=== PATIENT | female | born 1975 | race Caucasian/White ===

== ENCOUNTER 2020-03-20 07:09 | Outpatient (REF) | payer BC, SELFPAY | END 2020-03-20 07:10 | disposition home or self-care (01) | LOC: HO.LAB 07:09 | PROVIDERS: PCP Internal Medicine; Visit Provider Internal Medicine | DX: Z20.822 Contact with and (suspected) exposure to COVID-19 (principal) | CPT/HCPCS: 36415; C9803; U0003 ==

== ENCOUNTER 2020-04-07 16:31 | Outpatient (REF) | payer BC, SELFPAY ==
[2020-04-07 17:06] LABS: MANUAL DIFF FLAG NO
[2020-04-07 17:08] LABS: Basophils Percent Auto 0.6 % (0-2); Eosinophils Absolute Auto 0.1 X10*3/uL (0.0-0.4); Hematocrit 42.5 % (37-47); Hemoglobin 14.1 g/dl (12.0-16.0); Imm Gran Abs Auto 0.01 X10*3/uL (0.00-0.03); Imm Gran Pct Auto 0.2 % (0.0-0.4); Lymphocytes Absolute Auto 1.7 X10*3/uL (1.2-4.9); Lymphocytes Percent Auto 32.7 % (20-40); Mean Corpuscular HGB Conc 33.2 g/dl (31.0-35.0); Mean Corpuscular Volume 90.4 fL (80-98); Mean Platelet Volume 9.4 fL (9.4-12.3); Monocytes Absolute Auto 0.4 X10*3/uL (0.1-1.2); Monocytes Percent Auto 7.2 % (2-11); Neutrophils Percent Auto 58.3 % (45-73); Platelet Count 216 X10*3/uL (160-400); Red Cell Distribution Width 11.7 % (11.0-16.0); White Blood Count 5.1 X10*3/uL (4.8-10.8)
[2020-04-07 17:48] LABS: Alanine Aminotransferase 13 U/L (0-31); Albumin Level 4.9 g/dL (3.5-5.0); Alkaline Phosphatase 65 U/L (39-117); Aspartate Amino Transferase 19 U/L (5-31); Bilirubin Direct 0.2 mg/dL (0.0-0.5); Bilirubin Total 0.6 mg/dL (0.0-1.0); Total Protein 7.3 g/dL (6.5-8.0)
== END 2020-04-07 16:32 | disposition home or self-care (01) ==
LOC: HO.LAB 16:31
PROVIDERS: Visit Provider Psychiatry & Neurology Neurology
DX: G35 Multiple sclerosis (principal)
CPT/HCPCS: 36415; 80076; 85025

== ENCOUNTER 2020-04-21 17:54 | Outpatient (REF) | payer BC, SELFPAY ==
--- NOTE | ~2020-04-21 | MR_ITS ---
EXAMINATION: MR BRAIN WITHOUT CONTRAST CLINICAL INFORMATION: History of MS for followup exam. COMPARISON: 05/03/2016 TECHNIQUE: Multiplanar multisequence MR imaging of the brain was done without intravenous contrast material. FINDINGS: Brain Volume: Normal for age. Structural: No malformations. Brain and Meninges: DWI imaging demonstrates no restricted diffusion. Multiple small T2 hyperintense white matter lesions in the cerebral hemispheres bilaterally are again noted, with a similar distribution and pattern, with no significant interval change. No new lesions are identified. No T1 black holes are identified. No space-occupying process or mass effect. There is asymmetric susceptibility-weighted artifact again noted in the right caudate nucleus, which may reflect dystrophic minimal deposition, unchanged. Ventricles and Subarachnoid Spaces: Ventricular system and subarachnoid spaces are within normal limits, stable in appearance without hydrocephalus. Orbital Structures: Visualized orbital structures are grossly unremarkable within the limitations of the study. Vascular: Normal signal voids are noted in the visualized major intracranial vessels. MR/MR head/brain wo con IMPRESSION: 1. Stable supratentorial white matter lesions. No definite new lesions are identified. 2. Stable focus of susceptibility-weighted signal loss in the right caudate nucleus which is nonspecific.
== END 2020-04-21 17:55 | disposition home or self-care (01) ==
LOC: HO.MRI 17:54
PROVIDERS: Visit Provider Psychiatry & Neurology Neurology
DX: G35 Multiple sclerosis (principal)
CPT/HCPCS: 70551

== ENCOUNTER 2020-05-03 13:57 | Emergency (ER) | payer BC, SELFPAY ==
[2020-05-03 14:07] VITALS: BP 125/91; PULSE 66; RESP 16; TEMP 36.3; O2SAT 100; BMI 24.3
--- NOTE | 2020-05-03 14:11 | ECG_ITS ---
Test Reason : CHEST PAIN Blood Pressure : / mmHG Vent. Rate : 064 BPM Atrial Rate : 064 BPM P-R Int : 108 ms QRS Dur : 090 ms QT Int : 386 ms P-R-T Axes : 001 067 053 degrees QTc Int : 398 ms Normal sinus rhythm Otherwise normal ECG No previous ECGs available Referred By: Generic ED Physician Electronically Signed By:YANNA PENA MD
== END 2020-05-03 16:32 | disposition left against medical advice (07) ==
PROVIDERS: Emergency Provider Emergency Medicine; PCP Internal Medicine
DX: R07.9 Chest pain, unspecified (principal)
CPT/HCPCS: 93005; 99282; 99283

== ENCOUNTER 2022-04-06 06:16 | Outpatient (REF) | payer BC, SELFPAY ==
[2022-04-06 06:37] LABS: MANUAL DIFF FLAG NO
[2022-04-06 07:32] LABS: Basophils Percent Auto 0.7 % (0-2); Eosinophils Absolute Auto 0.1 X10*3/uL (0.0-0.4); Eosinophils Percent Auto 2.3 % (0-4); Hematocrit 41.8 % (37.0-47.0); Hemoglobin 13.9 g/dl (12.0-16.0); Imm Gran Abs Auto 0.02 X10*3/uL (0.00-0.03); Imm Gran Pct Auto 0.5 % (0.0-0.4); Lymphocytes Absolute Auto 1.5 X10*3/uL (1.2-4.9); Lymphocytes Percent Auto 36.2 % (20-40); Mean Corpuscular HGB Conc 33.3 g/dl (31.0-35.0); Mean Corpuscular Hemoglobin 29.5 pg (27.0-33.0); Mean Corpuscular Volume 88.7 fL (80.0-98.0); Mean Platelet Volume 9.4 fL (9.4-12.3); Monocytes Absolute Auto 0.4 X10*3/uL (0.1-1.2); Monocytes Percent Auto 8.5 % (2-11); Neutrophils Absolute Auto 2.2 x10*3/uL (2.0-8.3); Neutrophils Percent Auto 51.8 % (45-73); Platelet Count 221 X10*3/uL (160-400); Red Blood Count 4.71 X10*6/uL (4.20-5.50); Red Cell Distribution Width 11.8 % (11.0-16.0); White Blood Count 4.3 X10*3/uL (4.8-10.8)
[2022-04-06 08:02] LABS: Alanine Aminotransferase 22 U/L (0-31); Albumin Level 4.5 g/dL (3.5-5.0); Alkaline Phosphatase 62 U/L (39-117); Anion Gap 12 (12-20); Aspartate Amino Transferase 19 U/L (5-31); Bilirubin Total 0.5 mg/dL (0.0-1.0); Blood Urea Nitrogen 15 mg/dL (9-16); Calcium 9.5 mg/dL (8.4-10.2); Carbon Dioxide 29 mmol/L (22-29); Chloride 103 mmol/L (96-108); Cholesterol 181 mg/dL; Estimated Glomerular Filt Rate > 60; Glucose Fasting 97 mg/dL (60-99); HDL Cholesterol 55 mg/dL; LDL Cholesterol Calculated 110 mg/dl; Potassium 4.1 mmol/L (3.3-5.1); Sodium 140 mmol/L (135-145); Total Protein 6.8 g/dL (6.5-8.0); Triglycerides 83 mg/dL
[2022-04-06 08:11] LABS: TSH reflex Free T4 1.37 uIU/mL (0.32-4.0)
[2022-04-06 08:19] LABS: Appearance Urine Clear; Color Urine Yellow; Glucose Urine UA Negative (Negative); Leukocyte Esterase Urine Small (1+) (Negative); Nitrite Urine Negative (Negative); PH 5.5 (5.0-9.0); Specific Gravity - Urine 1.025 (1.005-1.025); UMIC TRIGGER UA YES; Urine Blood Negative (Negative); Urine Ketones Negative (Negative); Urine Protein Negative (Neg-Trace)
[2022-04-06 08:28] LABS: Bacteria Urine None Seen (None Seen); Hyaline Casts Urine 0-2 /LPF (0-2); RBC Urine 0-2 /HPF (0-2); WBC Urine 0-5 /HPF (0-5)
== END 2022-04-06 06:17 | disposition home or self-care (01) ==
LOC: HO.LAB 06:16
PROVIDERS: PCP Family Medicine; Visit Provider Family Medicine
DX: Z00.00 Encounter for general adult medical examination without abnormal findings (principal)
CPT/HCPCS: 36415; 80053; 80061; 81001; 84443; 85025

== ENCOUNTER → 2022-06-20 07:59 | Outpatient (BNVA) | payer BC, SELFPAY | PROVIDERS: PCP Family Medicine; Visit Provider Physician Assistant | DX: Z13.89 Encounter for screening for other disorder (principal) ==

== ENCOUNTER 2022-08-09 14:25 | Outpatient (REF) | payer BC, SELFPAY ==
--- NOTE | ~2022-08-09 | MR_ITS ---
EXAMINATION: MRI BRAIN WITHOUT CONTRAST CLINICAL INFORMATION: Multiple sclerosis. COMPARISON: Brain MRI 04/21/2020, 05/03/2016 TECHNIQUE: Multiplanar MR imaging of the brain was performed without contrast. FINDINGS: There are a few scattered nonspecific foci of T2 FLAIR signal hyperintensity involving the supratentorial white matter. No infratentorial white matter disease. There is no acute territorial infarct. There is asymmetric susceptibility artifact within the right caudate nucleus best visualized on axial image 14 of 24 series 7. No pathological signal changes on the T2 or T2 FLAIR imaging. Intracranial vascular flow voids are maintained. There is no intracranial mass effect or midline shift. No abnormal extra-axial collection. Lateral and third ventricles are normal. No hydrocephalus. Midline structures including the cervicomedullary junction are normal. No acute bone marrow signal changes. There is no mastoid middle ear effusion. Mild present sinus disease primarily affecting the ethmoid air cells. Globes and orbits are symmetric. MR/MR head/brain wo con IMPRESSION: Stable chronic white matter disease with a few scattered nonspecific signal changes involving the supratentorial white matter. No infratentorial white matter disease. No evidence of acute territorial infarct or hemorrhage.
== END 2022-08-09 14:26 | disposition home or self-care (01) ==
LOC: HO.MRI 14:25
PROVIDERS: PCP Family Medicine; Visit Provider Psychiatry & Neurology Neurology
DX: G35 Multiple sclerosis (principal)
CPT/HCPCS: 70551

== ENCOUNTER 2023-02-08 07:46 | Day surgery (SDC) | payer BC, SELFPAY ==
[2023-02-06 13:52] VITALS: BMI 26.6
--- NOTE | 2023-02-06 14:28 | HO.ANESPROP2 ---
Documented by User: Augusta Huertas NP 02/06/23 14:28 HPI - Anesthesia Eval Consult details Narrative: 47yo F for Colonoscopy PMFSH Active Problems Active Problems: All Active Problems (Updated 02/06/23 @ 14:06 by Angela Caban RN) Halitosis (Acute) Pelvic pain (Acute) Breast cancer screening by mammogram (Acute) Screening for colon cancer (Acute) Screening for cervical cancer (Acute) Adult general medical exam (Acute) Axillary swelling (Acute) Immunization counseling (Acute) Eczema (Acute) Family history of coronary artery disease (Acute) Anxiety (Acute) Laboratory exam ordered as part of routine general medical examination (Acute) Multiple sclerosis (Acute) Seizures (Acute) Past Medical History Medical History Menopause Migraine Cervical disc disorder Anxiety Multiple sclerosis Seizures Surgical History Surgical History [place] teeth removed H/O colonoscopy Social History Social History Housing: House Patient Tobacco Use Status: Never used Tobacco e-Cigarette/Vaping Use: Never Used Second Hand Smoke Exposure: No Are you DNR?: No Advance Directives: No Advance Directives Information Provided: Yes Nutrition Risks: No Nutritional Risk FDLMP: 3 years without service: No Current occupational status: employed Current occupational exposures/hazards: No Cognitive needs: No Hearing needs: No Vision needs: No Meds Allergies Allergy/AdvReac Type Severity Reaction Status Date / Time No Known Allergies Allergy Verified 02/08/23 07:55 Home Medications Medication Instructions Recorded Confirmed Last Taken Type dimethyl fumarate 240 mg 240 mg PO BID 04/10/22 02/08/23 Unknown History capsule,delayed release levetiracetam 250 mg tablet 250 mg PO BID 04/10/22 02/06/23 Unknown History lorazepam 0.5 mg tablet 0.5 mg PO DAILY PRN Anxiety 05/01/22 02/06/23 Unknown History Exam Height,Weight and Vital Signs: Height 5 ft 7 in Weight 77.111 kg Assessment and Plan Assessment Anesthesia Assessment: Chart Reviewed Documented by User: Gabby Aguirre MD 02/08/23 08:48 PMFSH Active Problems Active Problems: All Active Problems (Updated 02/08/23 @ 08:20 by Gabby Aguirre MD) Halitosis (Acute) Pelvic pain (Acute) Breast cancer screening by mammogram (Acute) Screening for colon cancer (Acute) Screening for cervical cancer (Acute) Adult general medical exam (Acute) Axillary swelling (Acute) Immunization counseling (Acute) Eczema (Acute) Family history of coronary artery disease (Acute) Anxiety (Acute) Laboratory exam ordered as part of routine general medical examination (Acute) Multiple sclerosis (Acute)- in remission Seizures (Acute)- last seizure 1 year ago Past Medical History Medical History Menopause Migraine Cervical disc disorder Anxiety Multiple sclerosis Seizures Family History Family history of problems with anesthesia: No Surgical History Surgical History [place] teeth removed H/O colonoscopy History of Problems with Anesthesia: No Social History Social History Housing: House Patient Tobacco Use Status: Never used Tobacco e-Cigarette/Vaping Use: Never Used Second Hand Smoke Exposure: No Are you DNR?: No Advance Directives: No Advance Directives Information Provided: Yes Nutrition Risks: No Nutritional Risk FDLMP: 3 years without service: No Current occupational status: employed Current occupational exposures/hazards: No Cognitive needs: No Hearing needs: No Vision needs: No Meds Allergies Allergy/AdvReac Type Severity Reaction Status Date / Time No Known Allergies Allergy Verified 02/08/23 07:55 Home Medications Medication Instructions Recorded Confirmed Last Taken Type dimethyl fumarate 240 mg 240 mg PO BID 04/10/22 02/08/23 Unknown History capsule,delayed release levetiracetam 250 mg tablet 250 mg PO BID 04/10/22 02/06/23 Unknown History lorazepam 0.5 mg tablet 0.5 mg PO DAILY PRN Anxiety 05/01/22 02/06/23 Unknown History Exam Height,Weight and Vital Signs: Height 5 ft 7 in Weight 77.111 kg Vital Signs Temp Pulse Resp BP Pulse Ox O2 Del Method 02/08/23 08:07 97.7 F 72 18 123/81 96 Room Air Airway Mallampati Class: II TM Dist: >3cm Neck ROM: Full Loose/Missing/Broken Teeth: No (Denies broken, loose, missing teeth) Heart: RRR Lungs: CTAB Assessment and Plan Assessment Anesthesia Assessment: Anesthesia Plan Discussed Final Anesthetic Review Family History of Problems with Anesthesia: No History of Problems with Anesthesia: No NPO: Yes ASA Class: III Final Preanesthetic Review: No Changes in Pt Med Stat, Meds/Allgs Chart Reviewed, Consent Obtained/Reviewed and Anes Risks/Benef Reviewed Patient Risk: Intermediate Procedure Risk: Low Assessment/Block/Sedation in SS: Assess/Block/Sedation-SS Anesthetic Plan Anesthetic Plan: MAC: Disposition: Standard PACU
--- NOTE | 2023-02-08 06:35 | P.HPSUR_ITS ---
Pre-Procedural Eval Section A Date of Service: 02/08/23 Section B Chief Complaint: screening Details of Present Illness: also c/o chornic RLQ pain, worse with head lifting and well localized Relevant Family History (Specify if Yes): No Relevant Social History: None Present Medications: see Short Stay Collaborative assessment Medical History: Significant History (Menopause Migraine Cervical disc disorder Anxiety Multiple sclerosis Seizures) History of Previous Operations: Relevant previous surgery/procedure and date(s) (wisdom tooth, colonoscopy) Allergies: Allergies Allergy/AdvReac Type Severity Reaction Status Date / Time No Known Allergies Allergy Verified 06/20/22 08:03 Review of Systems Sugical H&P ROS: Negative: Constitution, Cardiovascular, Respiratory, Neurological, Psychiatric, Hem-Onc, Allergic/Immunologic, Gastrointestinal, Genitourinary, Musculoskeletal, Integumentary, Endocrine and Eyes/Ears/Nose/Throat Exam Surgical H&P Exam: Normal: HEENT, Normal: Heart, Normal: Lungs, Normal: Extremities, Normal: Abdomen and Normal: Neurological and Significant Findings: Skin (tedner RLQ with locazlied pain and pos head lift sign) Plan Diagnosis/Plan: Unchanged I have reviewed the history and physical and performed a pertinent physical examination on my patient. No changes have occurred unless specified. c olonoscopy with lido/kenalog injection to trigger point RLQ Time Spent With Patient Time: Total time managing care of this patient today ____ minutes.
[2023-02-08 07:57] VITALS: BMI 26.6
[2023-02-08] MEDS: Lactated Ringers 1,000 ML 100 ML IVCONT (08:04)
[2023-02-08 08:07] VITALS: BP 123/81; PULSE 72; RESP 18; TEMP 36.5; O2SAT 96
--- NOTE | 2023-02-08 09:07 | W.PM.OPN ---
Operative Note Operative Note Date of Service: 02/08/23 Narrative: Operative Information Procedure Description: Colonoscopy Indication: screening and myofascial pain injection Anesthesia: MAC Before the procedure the site of pain was marked and injected with 40 mg kenalofg mixed with 1% lidocaine and epinephrine 2 cc mix for total of 3 ml. This was injected into the area of concern. COLONOSCOPY Instrument: Olympus variable stiffness pediatric scope 190L Colonoscopy Monitoring: Vital signs and clinical assessment, continuous EKG monitoring, Pulse oximetry, Carbon Dioxide monitoring and blood pressure monitoring were done throughout the procedure. Colon withdrawal time was 10 minutes. Procedure: The patient was placed in the left lateral decubitis position and pre-procedure medications were administered. After a digital rectal examination of the ano-rectum, the video colonoscope was inserted into the rectum and advanced through the colon to the cecum/TI. The colonoscope was slowly withdrawn in a retrograde panoramic fashion and the colon mucosa was carefully examined including a retroflexed view of the rectum. Findings and interventions are described below. Procedure Difficulty: easy Findings: Terminal Ileum-normal Cecum:normal Ascending Colon: normal Transverse Colon -normal Descending Colon:normal Sigmoid Colon: normal Rectum: Retroflexion with small internal hemorrhoids, grade I Anorectum - normal Colon preparation: [place] Bowel Preparation Scale Right colon; 1-2 Transverse colon: 2 Left colon; 2 (0 = Unprepared colon segment with mucosa not seen due to solid stool that cannot be cleared. 1 = Portion of mucosa of the colon segment seen, but other areas of the colon segment not well seen due to staining, residual stool and/or opaque liquid. 2 = Minor amount of residual staining, small fragments of stool and/or opaque liquid, but mucosa of colon segment seen well. 3 = Entire mucosa of colon segment seen well with no residual staining, small fragments of stool or opaque liquid) Impression and Post Procedure Diagnosis: internal hemorrhoids myofascial trigger point injection Plan: High fiber diet leaflet Avoid straining at stool, epsom salts and sitz bath, anusol supps or cream Repeat Colonoscopy in 5 years due to fair prep in some areas or earlier if clinically indicated Above findings were reviewed with the patient and relevant handouts were provided if indicated.
[2023-02-08 09:16] VITALS: BP 101/65; PULSE 65; RESP 16; TEMP 36.7; O2SAT 97
[2023-02-08 09:35] VITALS: BP 108/73; PULSE 62; RESP 18; TEMP 36.7; O2SAT 99
== END 2023-02-08 09:57 | disposition home or self-care (01) ==
PROVIDERS: PCP Family Medicine; Visit Provider Internal Medicine Gastroenterology
PROC: 0DJD8ZZ Inspection of Lower Intestinal Tract, Via Natural or Artificial Opening Endoscopic (ICD-10-PCS; CPT 45378; principal; 2023-02-08 09:10)
DX: Z12.11 Encounter for screening for malignant neoplasm of colon (principal); K64.0 First degree hemorrhoids; M79.18 Myalgia, other site; M50.90 Cervical disc disorder, unspecified, unspecified cervical region; G35 Multiple sclerosis; G43.909 Migraine, unspecified, not intractable, without status migrainosus; R56.9 Unspecified convulsions; Z78.0 Asymptomatic menopausal state
CPT/HCPCS: 45378; 20552; J2704; J3301

== ENCOUNTER → 2023-02-08 07:46 | Outpatient (BNV) | payer BC, SELFPAY | PROVIDERS: PCP Family Medicine; Visit Provider Internal Medicine Gastroenterology | DX: Z12.11 Encounter for screening for malignant neoplasm of colon (principal); K64.0 First degree hemorrhoids; M79.10 Myalgia, unspecified site | CPT/HCPCS: 20552; 45378 ==

== ENCOUNTER 2023-03-13 11:31 | Outpatient (AMB) | payer BC, SELFPAY ==
--- NOTE | 2023-03-13 11:32 | MHC.OFFVIS ---
Intake Intake Visit Reasons: post op Intake Note: Follow up for Colonoscopy results Patient denies any GI issues. 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 Johnson She tolerated procedure well, she was very happy with trigger point injection at site of pain-she has had no recurrent pain No GI or general complaints [phone] Cell Phone Before the procedure the site of pain was marked and injected with 40 mg kenalofg mixed with 1% lidocaine and epinephrine 2 cc mix for total of 3 ml. This was injected into the area of concern. [facility] Medical History (Updated 03/13/23 @ 11:40 by Yovana Poe PA-C) Menopause Migraine Cervical disc disorder Anxiety Multiple sclerosis Seizures Surgical History [place] teeth removed H/O colonoscopy Social History Housing: House Patient Tobacco Use Status: Never used Tobacco e-Cigarette/Vaping Use: Never Used Second Hand Smoke Exposure: No service: No Current occupational status: employed Current occupational exposures/hazards: No Cognitive needs: No Hearing needs: No Vision needs: No Review of Systems Const Details: All Systems reviewed and are negative Results Reviewed Results Reviewed: Impression and Post Procedure Diagnosis: internal hemorrhoids myofascial trigger point injection Plan: High fiber diet leaflet Avoid straining at stool, epsom salts and sitz bath, anusol supps or cream Repeat Colonoscopy in 5 years due to fair prep in some areas or earlier if clinically indicated Assessment & Plan Assessment & Plan (1) Hemorrhoids: Code(s): K64.9 - Unspecified hemorrhoids Plan: Avoid straining, maintain high-fiber diet Plan Avoid straining, maintain high-fiber diet Repeat asymptomatic colonoscopy 5 years Patient Instructions: Avoid straining, maintain high-fiber diet Repeat asymptomatic colonoscopy 5 years Encouraged to call questions or concerns Telehealth Telehealth Location of provider rendering services: practice address Location of patient: other (Employment) Patient Identification confirmed using: Name, : Yes Telehealth method: voice only Patient verbally consented to treatment: Yes Patient verbally consented to billing insurance company: Yes Patient informed of any privacy concerns related to visit: Yes Coding Level of Care Code Tele Est Pt Level 3 (15028) Diagnoses Hemorrhoids K64.9 Time Spent (min) 15
== END 2023-03-13 14:08 | disposition home or self-care (01) ==
LOC: HO.HGI 11:31
PROVIDERS: PCP Family Medicine; Referring Provider Family Medicine; Visit Provider Physician Assistant
DX: K64.9 Unspecified hemorrhoids (principal)
CPT/HCPCS: 99442

== ENCOUNTER → 2023-03-13 11:31 | Outpatient (BNVA) | payer BC, SELFPAY | PROVIDERS: PCP Family Medicine; Visit Provider Physician Assistant ==

== ENCOUNTER 2023-05-03 09:22 | Outpatient (REF) | payer BC, SELFPAY ==
[2023-05-13 11:04] LABS: HPV mRNA E6/E7 rflx Not Detected (Not Detected)
== END 2023-05-03 09:23 | disposition home or self-care (01) ==
LOC: HO.LAB 09:22
PROVIDERS: PCP Family Medicine; Visit Provider Advanced Practice Midwife
DX: Z01.419 Encounter for gynecological examination (general) (routine) without abnormal findings (principal); E28.319 Asymptomatic premature menopause; Z79.899 Other long term (current) drug therapy
CPT/HCPCS: 87624; 88142

== ENCOUNTER 2023-05-03 09:22 | Outpatient (AMB) | payer BC, SELFPAY ==
--- NOTE | 2023-05-03 09:33 | A.OFFVIS_ITS ---
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 Required: No Information Interpreted: clinical only Smoke Jumper: Smoke Jumper Present Allergies No Known Allergies Allergy (Verified 05/03/23 09:33) Medication List - Last Reconciled 05/03/23 by Velia Clay, CNM dimethyl fumarate 240 mg PO BID levetiracetam 250 mg PO BID lorazepam 0.5 mg PO DAILY PRN triamcinolone acetonide 0.5% 1 appl topical BID PRN 30 days Is last menstrual period known: No Post menopausal: Yes (2020) Do you need a note to return to daycare/school/sports/work: No HPI 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 She has not been seen in since a number of years she had a miscarriage at age 37 and she was 4 months along and it was a very traumatic experience. She has gone through early menopause about 3 years ago her mother did as well. She had hot flashes for a while but they have improved she has not very sexually active with her she has absolutely no concerns about STIs and declines testing. 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 She has MS but she stays very active and things are good at this particular point though she was on chemo at one poinr for it. She used to have ulcers as a young person and she chewed a lot of Tums at the time and she said that sugar affected her teeth so she does not eat a lot of Tums now to protect her teeth. She thinks she could probably get a little bit more calcium in her diet but she has a regular healthy diet. She has 2 adopted girls age 9 and 13. [facility] Medical History Menopause Migraine Cervical disc disorder Anxiety Multiple sclerosis Seizures Surgical History [place] teeth removed H/O colonoscopy Social History Housing: House Patient Tobacco Use Status: Never used Tobacco e-Cigarette/Vaping Use: Never Used Second Hand Smoke Exposure: No service: No Current occupational status: employed Current occupational exposures/hazards: No Cognitive needs: No Hearing needs: No Vision needs: No Female Reproductive History Menstrual Age of Menarche: 11 Duration of menses: <3 days Total pregnancies: 1 History of abnormal pap smear: No (per patient previous pap 2012) Physical Exam Vital Signs: Last Vital Signs BP 110/60 05/03/23 10:04 BMI result Body Mass Index 28.2 Const General: healthy appearing, comfortable, no acute distress, well developed and alert Nutritional Appearance: average body habitus Orientation/consciousness: patient oriented x3 Limitations: no limitations HEENT Head: Yes normocephalic Neck Neck: Yes normal visual inspection Chest Chest palpation & inspection: normal inspection of the chest Breast/axilla inspection: normal inspection of the breasts and normal inspection of the axillae Breast/axilla palpation: normal palpation of the breasts and normal palpation of the axillae Resp Effort & Inspection: normal respiratory effort GI Inspection: Yes normal to inspection, No Abdominal wall edema and No distended Palpation (GI): Soft to palpation and nontender Other: Vagina pink moist atrophic changes notable cervix tiny none nulliparous deviated slightly to patient's right uterus not enlarged nontender adnexa not enlarged nontender good tone with Kegel. General: Yes bladder normal to palpation External Female Exam: normal external appearance and normal appearance of the urethra Speculum Exam - Vagina: normal appearance of the vagina, normal palpation and normal vaginal discharge Speculum Exam - Cervix: normal appearance of the cervix, normal palpation and nontender Bimanual exam- vagina & uterus: normal bimanual exam, normal palpation, uterine size normal, bladder normal to palpation, consistency normal, normal palpation, uterine mobility normal, uterine shape normal, No Cervical tenderness present, non-tender and no cervical motion tenderness Bimanual Exam- Adnexa, other: normal adnexae, no masses, normal and No adnexal tenderness Neuro General: patient oriented x3 Assessment & Plan Assessment & Plan (1) Early onset menopause: Code(s): E28.319 - Asymptomatic premature menopause (2) Well woman exam with routine gynecological exam: Code(s): Z01.419 - Encounter for gynecological examination (general) (routine) without abnormal findings Plan -----Discussed in this visit the following: healthy balanced diet, regular and consistent exercise, getting recommended health screens, doing the best she can for her particular health concerns, kegel exercises, pap smear screening and followup recommendations, mammography screening and SBE, normal changes in cycles in her life stage--- . Up-to-date on mammograms and she had a rather detailed 1 done at [facility] in [place] at [facility] secondary to a concern with axillary swelling this year it turned out fine -she is seen her primary and has had all screening blood work and she feels her MS is in pretty good control and she is going on the theory that staying active helps her have other pathways to deal with any complications that may come before her. She will work on trying to add more calcium to her diet she does eat yogurt every day it is her go to for breakfast . I reviewed that if this Pap is negative and I do hope that it was adequate, that she will not need another Pap for 5 years. She wished to pursue bone density, I recommend she speak to her primary care provider about it as it is not something I manage. Coding Level of Care Code New Pt Prev Care 40-64y(74928) Diagnoses Early onset menopause E28.319 Well woman exam with routine gynecological exam Z01.419
[2023-05-03 10:04] VITALS: BP 110/60; BMI 28.2
== END 2023-05-03 10:47 | disposition home or self-care (01) ==
LOC: HO.HWSM 09:22
PROVIDERS: PCP Family Medicine; Visit Provider Advanced Practice Midwife
DX: Z01.419 Encounter for gynecological examination (general) (routine) without abnormal findings (principal); E28.319 Asymptomatic premature menopause
CPT/HCPCS: 99386; 99396

== ENCOUNTER 2023-05-07 08:59 | Outpatient (AMB) | payer BC, SELFPAY ==
--- NOTE | 2023-05-07 09:19 | AM.OFFWIN_ITS ---
Intake Intake Visit Reasons: CPE Patient Tobacco Use Status: Never used Tobacco Allergies No Known Allergies Allergy (Verified 05/03/23 09:33) PFSH Medical History Menopause Migraine Cervical disc disorder Anxiety Multiple sclerosis Seizures Surgical History [place] teeth removed H/O colonoscopy Social History Housing: House Patient Tobacco Use Status: Never used Tobacco e-Cigarette/Vaping Use: Never Used Second Hand Smoke Exposure: No service: No Current occupational status: employed Current occupational exposures/hazards: No Cognitive needs: No Hearing needs: No Vision needs: No Female Reproductive History Menstrual Age of Menarche: 11 Coding
[2023-05-07 09:22] VITALS: BP 131/86; PULSE 65; RESP 12; TEMP 35.9; O2SAT 98; BMI 27.4
--- NOTE | 2023-05-07 09:31 | MHC.PC.OV ---
Vital Signs 05/07/23 09:22 Height 5 ft 7 in Weight 175 lb BMI 27.4 BP 131/86 Blood Pressure Location Rt brachial Position Sitting Respiration 12 Pulse 65 Pulse Source Pulse Oximeter Temp 96.6 F L Temp Source Temporal Artery Scan Pulse Oximetry (%) 98 Oxygen Delivery Method Room Air Intake Visit Reasons: CPE Intake Note: Patient is here for a CPE and is requesting a referral to ENT for blocked/impacted ears. Patient reports she has used debrox drops. Bag Maker Required: No Accompanied by: Self / Same As Patient Allergies No Known Allergies Allergy (Verified 05/07/23 09:57) Medication List - Last Reconciled 05/07/23 by MARCELO Whitlock dimethyl fumarate 240 mg PO BID levetiracetam 250 mg PO BID lorazepam 0.5 mg PO DAILY PRN triamcinolone acetonide 0.5% 1 appl topical BID PRN 30 days Tobacco use date assessed: 05/01/22 HPI HPI Comments History of Present Illness Details Here today for CPE 47 y/o F with MS, Seizures, menopause Health Maintenance: Colon Mammo 10/2022 Pap 04/2023 WNL Eyes - wears contacts, active Optho Dental routine, no issues Labs were drawn 04/06/22 Vaccines reports UTD DEXA has never had, ordered today. Specialists: Active w/ Neuro ENT - no referral yet, would like this placed today [facility]PER[facility] - [place] Surgeries: None since last visit No hospital stays since last visit [facility], [facility] Medical History Menopause Migraine Cervical disc disorder Anxiety Multiple sclerosis Seizures Surgical History Coy teeth removed H/O colonoscopy Social History Household Members: Spouse and Children Household Members Other:: 2 daughters Housing: House 75 years or older and lives alone: No Alcohol intake: never Patient Tobacco Use Status: Never used Tobacco e-Cigarette/Vaping Use: Never Used Second Hand Smoke Exposure: No service: No Current occupational status: employed Current occupational exposures/hazards: No Cognitive needs: No Hearing needs: Yes (impacted ears ) Vision needs: No Female Reproductive History Menstrual Age of Menarche: 11 Questionnaire PHQ-9 Over the last 2 weeks, how often have you been bothered by any of the following problems? 1. Little interest or pleasure in doing things: not at all 2. Feeling down, depressed, or hopeless: not at all 3. Trouble falling or staying asleep, or sleeping too much: not at all 4. Feeling tired or having little energy: not at all 5. Poor appetite or overeating: not at all 6. Feeling bad about yourself - or that you are a failure or have let yourself or your family down: not at all 7. Trouble concentrating on things, such as reading the newspaper or watching television: not at all 8. Moving or speaking so slowly that other people could have noticed. Or the opposite - being so fidgety or restless that you have been moving around a lot more than usual: not at all 9. Thoughts that you would be better off or of hurting yourself in some way: not at all Total score: 0 Depression Screening Interpretation: Negative Depression Screening Done: Yes 67144 - PHQ-9 Billing: Yes Source: Developed by Drs. Filemon Robertson, Ashley Flores, Umair Palomo and colleagues, with an educational alberto from [employer]. Thrive Questionnaire Date Thrive assessed: 05/07/23 I am a: Patient What is your living situation today?: I have a steady place to live Within the past 12 months, did the food you bought not last and you didn't have the money to get more?: Never true Within the past 12 months, did you worry whether your food would run out before you got money to buy more?: Never true Do you have trouble paying for medicines?: No Do you have trouble getting transportation to medical appointments?: No Do you have trouble paying your heating and electricity bill?: No Do you have trouble taking care of your child, family member or friend?: No Do you have trouble with day-to-day activities such as bathing, preparing meals, shopping, managing finances, etc.?: No Are you currently unemployed and looking for a job?: No Are you interested in more education?: No Please select the resources that you would like help with: None Currently or been in a relationship where the following occur: no concerns reported THRIVE Score: 0 AUDIT C Alcohol Use Questionnaire (AUDIT-C) 1. How often do you have a drink containing alcohol?: Never 3. How often do you have six or more drinks on one occasion?: Never Total Score: 0 Score Reviewed/Action Taken: Yes DION-7 AMB Questionnaire DION-7 Date DION - 7 assessed: 05/07/23 Feeling nervous, anxious, or on edge: 0 = Not at all Not being able to stop or control worryin = Not at all Worrying too much about different things: 0 = Not at all Trouble relaxin = Not at all Being so restless that it is hard to sit still: 0 = Not at all Becoming easily annoyed or irritable: 0 = Not at all Feeling afraid as if something awful might happen: 0 = Not at all Total DION-7 score (0-4 normal; 5-9 mild; 10-14 moderate; 15-21 severe): 0 Source: Developed by Drs. Filemon Robertson, Ashley Flores, Umair Palomo and colleagues, with an educational alberto from [employer]. DION-7 Assessment Billing DION-7 Assessment Tool: DION-7 Assessment 83358 Review of Systems Const Details: Constitutional: Denies fever. Skin: Denies rash. Eye: Denies eye pain. ENMT: Denies sore throat and nasal congestion. Respiratory: Denies shortness of breath and cough. Gastrointestinal: Denies nausea, vomiting or abdominal pain. Cardiovascular: Denies chest pain and syncope. Genitourinary: Denies dysuria. Musculoskeletal: Denies back pain and extremity pain. Neurologic: Denies headaches, confusion, and weakness. Psychiatric: Denies suicidal thoughts and substance abuse. Allergy/ Immunologic: Denies impaired immunity. Physical exam (Primary Care) Vital Signs: Last Vital Signs Temp 96.6 F L 05/07/23 09:22 Pulse 65 05/07/23 09:22 Resp 12 05/07/23 09:22 BP 131/86 05/07/23 09:22 Pulse Ox 98 05/07/23 09:22 Oxygen Delivery Method Room Air 05/07/23 09:22 BMI result Body Mass Index 27.4 Tobacco/Smoking Status: Tobacco use Status Tobacco use date assessed 05/01/22 05/07/23 09:34 Patient Tobacco Use Status Never used Tobacco 05/07/23 09:34 e-Cigarette/Vaping Use Never Used 05/07/23 09:34 PHQ-9: PHQ-9 Score PHQ-9: Total score 0 05/07/23 09:58 Depression Screening Interpretation: Negative Thrive Assessment: Date of Thrive Assessment Date Thrive assessed 05/07/23 05/07/23 09:34 Currently or been in a relationship where the following occur: no concerns reported Const Other: General: Well developed, well nourished, in no acute distress. Appears stated age. Head: Normocephalic, atraumatic. Eyes: Pupils are equal, round and reactive to light and accommodation. Conjunctivae are clear. Vision grossly normal. Ears: TMs clear AU, EACS + cerumen bilat Nose: Patent, without discharge. Mouth: There are no ulcers or lesions noted. No inflammation, no post nasal drip, no plaques nor exudates. Neck: Supple, no adenopathy or thyromegaly. Lungs: Clear to auscultation bilaterally. No rales, rhonchi or wheeze noted. Good air flow in all muniz. Heart: Regular rate and rhythm. No murmurs, click, rubs or gallops are noted. Abdomen: Bowel sounds present in all quadrants. The abdomen is soft, nontender, with no masses or organomegaly noted. No hernias are noted. Musculoskeletal: Joints are nontender, without swelling, redness, or effusions. Range of motion is observed to be normal. Pulses: Peripheral pulses are equal and palpable bilaterally. Extremities: No clubbing, cyanosis nor edema is noted. Neurologic: Gait and station normal. Cranial Nerves 2-12 intact. Motor strength grossly symmetrical and intact. No sensory loss. Balance normal. Skin: No rashes, ulcers, or lesions noted. Turgor is good. Skin color is good. Hair and nails are without abnormalities. Psych: Normal eye contact, affect and mood appropriate, and normal interactions. Patient is alert and appropriate to context. Assessment and Plan Assessment & Plan (1) Adult general medical exam: Code(s): Z00.00 - Encounter for general adult medical examination without abnormal findings (2) Cryptic tonsil: Code(s): J35.8 - Other chronic diseases of tonsils and adenoids Plan: With a history of tonsilliths. Request referral to ENT. Referral placed today (3) Cerumen impaction: Code(s): H61.20 - Impacted cerumen, unspecified ear Qualifiers: Laterality: bilateral Qualified Code(s): H61.23 - Impacted cerumen, bilateral Plan: Requested referral to ENT. Referral placed today. (4) Post-menopausal: Comment: Has not yet had a DEXA scan. DEXA scan ordered along with vitamin-D level Code(s): Z78.0 - Asymptomatic menopausal state (5) Laboratory exam ordered as part of routine general medical examination: Code(s): Z00.00 - Encounter for general adult medical examination without abnormal findings (6) Multiple sclerosis: Comment: Managed by Neurology. Code(s): G35 - Multiple sclerosis (7) Seizures: Comment: controlled-follows w/Dr.'s Vance / Cristóbal Code(s): R56.9 - Unspecified convulsions Orders: Orders Lipid Panel Today Z00.00 - Encounter for general adult medical examination without abnormal findings, Z78.0 - Asymptomatic menopausal state Microalbumin, Random (w Creat) Today Z00.00 - Encounter for general adult medical examination without abnormal findings, Z78.0 - Asymptomatic menopausal state XR DEXA appendicular skeleton Today Z78.0 - Asymptomatic menopausal state Comprehensive [place]. Panel Fast Today Z00.00 - Encounter for general adult medical examination without abnormal findings, Z78.0 - Asymptomatic menopausal state TSH reflex Free T4 Today Z00.00 - Encounter for general adult medical examination without abnormal findings, Z78.0 - Asymptomatic menopausal state Vitamin D 1,25 dihydroxy Today Z00.00 - Encounter for general adult medical examination without abnormal findings, Z78.0 - Asymptomatic menopausal state Referrals Ear/Nose/Throat Referral H61.20 - Impacted cerumen, unspecified ear, J35.8 - Other chronic diseases of tonsils and adenoids Coding Level of Care Code Est Pt Prev Care 40-64y(99660) Diagnoses Adult general medical exam Z00.00 Cryptic tonsil J35.8 Bilateral impacted cerumen H61.23 Laterality: bilateral Post-menopausal Z78.0 Laboratory exam ordered as part of routine general medical examination Z00.00 Multiple sclerosis G35 Seizures R56.9 Additional Codes DION-7 Assessment Billing - DION-7 Assessment Tool: DION-7 Assessment 17836 ([id number])
== END 2023-05-07 10:20 | disposition home or self-care (01) ==
PROVIDERS: PCP Family Medicine; Visit Provider Nurse Practitioner Family
DX: Z00.00 Encounter for general adult medical examination without abnormal findings (principal); G35 Multiple sclerosis; R56.9 Unspecified convulsions; J35.8 Other chronic diseases of tonsils and adenoids; H61.23 Impacted cerumen, bilateral; Z78.0 Asymptomatic menopausal state
CPT/HCPCS: 99396

== ENCOUNTER 2023-05-30 07:49 | Outpatient (REF) | payer BC, SELFPAY ==
--- NOTE | ~2023-05-30 | MM_ITS ---
EXAMINATION: BONE DENSITOMETRY CLINICAL INDICATION: Asymptomatic menopausal state. COMPARISON: This is the patient's baseline examination. TECHNIQUE: Using a [employer] DXA System (software version: 13.1) manufactured by [employer], dual-energy x-ray absorptiometry was performed of the lumbar spine and left hip. The images are of good technical quality. Summary results are attached. FINDINGS: AP SPINE L1-L4: BMD 1.349 g/cm2, Z-score 1.2, T-score 1.4, normal. LEFT FEMUR, NECK: BMD 1.032 g/cm2, Z-score 0.4, T-score 0.0, normal. LEFT FEMUR, TOTAL: BMD 1.036 g/cm2, Z-score 0.3, T-score 0.2, normal. IDENTIFIED RISK FACTORS: Secondary osteoporosis (early menopause). HISTORY OF FRACTURE: None listed. MEDICATIONS: Calcium supplement and/or multivitamin. MM/XR DEXA axial skeleton IMPRESSION: 1. DIAGNOSIS: Normal bone density based on the lowest T-score value of 0.0 in the femoral neck applying World Health Organization criteria. 2. 10-YEAR FRACTURE RISK PREDICTION, FRAX: According to the guidelines, FRAX calculation should only be performed on patients in the osteopenia bone density category.?Therefore, FRAX was not performed on this patient.? 3. Treatment Recommendations: NOF guidelines recommend consideration for treatment in postmenopausal women and men age 50 and older presenting with the following: -A hip or vertebral (clinical or morphometric) fracture. -T-score less than or equal to -2.5 at the femoral neck or spine after appropriate evaluation to exclude secondary causes. -Low bone mass at the hip or spine and a 10-year fracture probability by FRAX of greater than or equal to 3% for hip fracture or greater than or equal to 20% for major osteoporotic fracture based on the [place] adapted WHO algorithm. 4. Other Recommendations: All treatment decisions require clinical judgment and consideration of individual patient factors, including patient preferences, comorbidities, previous drug use, risk factors not captured in the FRAX model (e.g. frailty, falls, vitamin D deficiency, increased bone turnover, interval significant decline in bone density) and possible under or overestimation of fracture risk by FRAX. FUTURE SCAN RECOMMENDATION: People with diagnosed cases of osteoporosis or at high risk for fracture should have regular bone mineral density tests. For patients eligible for Medicare, routine testing is allowed once every 2 years. The testing frequency can be increased to one year for patients who have rapidly progressing disease, those who are receiving or discontinuing medical therapy to restore bone mass, or have additional risk factors.
[2023-05-30 09:19] LABS: Creatinine Urine 164.62 mg/dL; Microalbum/Creatinine Ratio Ur 5.4 ug/mg cr (<30)
[2023-05-30 09:30] LABS: Alanine Aminotransferase 45 U/L (0-31); Albumin Level 4.3 g/dL (3.5-5.0); Alkaline Phosphatase 68 U/L (39-117); Anion Gap 10 (12-20); Aspartate Amino Transferase 26 U/L (5-31); Bilirubin Total 0.4 mg/dL (0.0-1.0); Blood Urea Nitrogen 14 mg/dL (9-16); Calcium 9.3 mg/dL (8.4-10.2); Carbon Dioxide 26 mmol/L (22-29); Chloride 109 mmol/L (96-108); Cholesterol 155 mg/dL (<200); Estimated Glomerular Filt Rate > 60; Glucose Fasting 98 mg/dL (60-99); HDL Cholesterol 50 mg/dL (>40); LDL Cholesterol Calculated 89 mg/dL (<100); Potassium 4.1 mmol/L (3.3-5.1); Sodium 141 mmol/L (135-145); Total Protein 6.8 g/dL (6.5-8.0); Triglycerides 80 mg/dL (<150)
[2023-05-30 09:37] LABS: TSH reflex Free T4 0.91 uIU/mL (0.32-4.0)
[2023-06-04 17:24] LABS: VITAMIN D (1,25 OH) D3 49 pg/mL; Vit D (1,25-Dihydroxy) Total 49 pg/mL (18-72); Vitamin D (1,25 OH) D2 <8 pg/mL
== END 2023-05-30 07:50 | disposition home or self-care (01) ==
LOC: HO.MAMMO 07:49
PROVIDERS: PCP Family Medicine; Visit Provider Nurse Practitioner Family
DX: Z13.820 Encounter for screening for osteoporosis (principal); Z78.0 Asymptomatic menopausal state; Z13.6 Encounter for screening for cardiovascular disorders; Z00.00 Encounter for general adult medical examination without abnormal findings
CPT/HCPCS: 36415; 77080; 80053; 80061; 82043; 82570; 82652; 84443

== ENCOUNTER 2024-03-23 16:53 | Outpatient (REF) | payer BC, SELFPAY ==
--- NOTE | ~2024-03-23 | MR_ITS ---
EXAMINATION: MR BRAIN WITHOUT AND WITH CONTRAST CLINICAL INFORMATION: MS. COMPARISON: MR brain dated August 09, 2022. TECHNIQUE: Multiplanar, multisequence MRI of the brain was obtained before and after the intravenous administration of 7.0 mL gadolinium without reported immediate complications. FINDINGS: Submitted for interpretation on March 26, 2024. No restricted diffusion. No acute intracranial hemorrhage, mass effect, midline shift, hydrocephalus or herniation. There are a few, less than 6 mm, nonenhancing, nonrestricted diffusion deep periventricular white matter and subcortical white matter hyperintense T2 FLAIR signal in the supratentorial compartment, the most conspicuous in the right frontal, right parietal and left frontoparietal regions. Posterior cranial fossa contents demonstrated no signal abnormality or focal masses. Flow-void signal within the main vessels is normal. Sellar/suprasellar region is normal. Craniocervical junction is intact and normal. MR/MR head/brain wo/w con IMPRESSION: Nonenhancing supratentorial compartment the demyelinating plaques. Overall stable. No new findings. Electronically signed by: Marty Bower MD 03/26/2024 10:27 AM ANNALISA
[2024-03-23] MEDS: gadobutroL 7.5 ML VIAL IVPUSH (17:44)
== END 2024-03-23 16:54 | disposition home or self-care (01) ==
LOC: HO.MRI 16:53
PROVIDERS: PCP Family Medicine; Visit Provider Psychiatry & Neurology Neurology
DX: G35 Multiple sclerosis (principal)
CPT/HCPCS: 70553; A9585

== ENCOUNTER → 2024-03-23 17:02 | Outpatient (BNV) | payer BC, SELFPAY | PROVIDERS: PCP Family Medicine; Visit Provider Radiology Diagnostic Radiology | DX: G35 Multiple sclerosis (principal) | CPT/HCPCS: 70553 ==

== ENCOUNTER 2024-05-08 09:01 | Outpatient (AMB) | payer BC, SELFPAY ==
--- NOTE | 2024-05-08 09:06 | A.OFFPC_ITS ---
Vital Signs 05/08/24 09:10 Height 5 ft 7 in Weight 178 lb BMI 27.9 BP 110/60 Blood Pressure Location Lt brachial Position Sitting Respiration 14 Pulse 98 Pulse Source Pulse Oximeter Temp 98.6 F Temp Source Oral Pulse Oximetry (%) 98 Oxygen Delivery Method Room Air Intake Visit Reasons: CPE Intake Note: CPE [employer] Required: No Is last menstrual period known: No Post menopausal: Yes Patient : No Allergies No Known Allergies Allergy (Verified 05/08/24 09:08) Medication List - Last Reconciled 05/08/24 by Chago Varela MD dimethyl fumarate 240 mg PO BID levetiracetam 250 mg PO BID lorazepam 0.5 mg PO DAILY PRN triamcinolone acetonide 0.5% 1 appl topical BID PRN 30 days Tobacco use date assessed: 05/08/24 Dental Screening Dental Screen Date: 05/08/24 Did you have a dental visit in the last 12 months?: Yes Did you have a dental problem in the last 6 months where you did not have access to dental care?: No Was dental information given to patient?: No HPI CPE HPI Details 48 y/o female presents for a CPE with f/ u labs and health maintenance. No recent labs to review. Notes she is requesting referral to ENT for frequent cerumen impaction. Next colonoscopy due 2027. [facility] Medical History Menopause Migraine Cervical disc disorder Anxiety Multiple sclerosis Seizures Surgical History [place] teeth removed H/O colonoscopy Social History Household Members: Spouse and Children Household Members Other:: 2 daughters Housing: House 75 years or older and lives alone: No Alcohol intake: never Patient Tobacco Use Status: Never used Tobacco e-Cigarette/Vaping Use: Never Used Second Hand Smoke Exposure: No Patient : No service: No Current occupational status: employed Current occupational exposures/hazards: No Cognitive needs: No Hearing needs: Yes (impacted ears ) Vision needs: No Female Reproductive History Menstrual Age of Menarche: 11 Questionnaire PHQ-9 Over the last 2 weeks, how often have you been bothered by any of the following problems? 1. Little interest or pleasure in doing things: not at all 2. Feeling down, depressed, or hopeless: not at all 3. Trouble falling or staying asleep, or sleeping too much: not at all 4. Feeling tired or having little energy: not at all 5. Poor appetite or overeating: not at all 6. Feeling bad about yourself - or that you are a failure or have let yourself or your family down: not at all 7. Trouble concentrating on things, such as reading the newspaper or watching television: not at all 8. Moving or speaking so slowly that other people could have noticed. Or the opposite - being so fidgety or restless that you have been moving around a lot more than usual: not at all 9. Thoughts that you would be better off or of hurting yourself in some way: not at all Total score: 0 Depression Screening Interpretation: Negative Depression Screening Done: Yes 04374 - PHQ-9 Billing: Yes Source: Developed by Drs. Filemon Robertson, Ashley Flores, Umair Palomo and colleagues, with an educational alberto from [employer]. Thrive Questionnaire Date Thrive assessed: 05/08/24 I am a: Patient What is your living situation today?: I have a steady place to live Within the past 12 months, did the food you bought not last and you didn't have the money to get more?: Never true Within the past 12 months, did you worry whether your food would run out before you got money to buy more?: Never true Do you have trouble paying for medicines?: No Do you have trouble getting transportation to medical appointments?: No Do you have trouble paying your heating and electricity bill?: No Do you have trouble taking care of your child, family member or friend?: No Do you have trouble with day-to-day activities such as bathing, preparing meals, shopping, managing finances, etc.?: No Are you currently unemployed and looking for a job?: No Are you interested in more education?: No Please select the resources that you would like help with: None Currently or been in a relationship where the following occur: No concerns reported THRIVE Score: 0 AUDIT C Alcohol Use Questionnaire (AUDIT-C) 1. How often do you have a drink containing alcohol?: Never 3. How often do you have six or more drinks on one occasion?: Never Total Score: 0 Score Reviewed/Action Taken: Yes DION-7 AMB Questionnaire DION-7 Date DION - 7 assessed: 05/08/24 Feeling nervous, anxious, or on edge: 0 = Not at all Not being able to stop or control worryin = Not at all Worrying too much about different things: 0 = Not at all Trouble relaxin = Not at all Being so restless that it is hard to sit still: 0 = Not at all Becoming easily annoyed or irritable: 0 = Not at all Feeling afraid as if something awful might happen: 0 = Not at all Total DION-7 score (0-4 normal; 5-9 mild; 10-14 moderate; 15-21 severe): 0 Source: Developed by Drs. Fliemon Robertson, Ashley Flores, Umair Palomo and colleagues, with an educational alberto from [employer]. DION-7 Assessment Billing DION-7 Assessment Tool: DION-7 Assessment 15056 Review of Systems Const Denies chills, Denies fatigue, Denies fever(s), Denies headache(s) and Denies weakness Eyes Denies change in vision ENT Denies dizziness, Denies headache(s), Denies hearing loss, Denies nasal congestion, Denies sinus pain, Denies sinus pressure and Denies sore throat Card Denies chest pain, Denies lightheadedness, Denies dyspnea and Denies other (palpitations) Resp Denies cough, Denies dyspnea and Denies wheezing GI Denies abdominal pain, Denies melena, Denies hematochezia, Denies change in bowel habits, Denies dyspepsia and Denies nausea Denies hematuria and Denies dysuria Musc Denies abnormal gait, Denies myalgias, Denies arthralgias, Denies numbness and Denies tingling Skin/Breast Denies rash, Denies unusual bruising and Denies wounds Neuro Denies abnormal gait, Denies dizziness, Denies headache(s), Denies memory loss, Denies numbness, Denies Sensory deficit (Neuro), Denies tingling and Denies weakness Psych Denies anxiety, Denies depression and Denies memory loss Endo Denies cold intolerance, Denies fatigue, Denies heat intolerance, Denies polydipsia and Denies polyuria Doc/Lymph Denies easy bleeding and Denies easy bruising Aller/Immun Denies wheezing Physical exam (Primary Care) Vital Signs: Last Vital Signs Temp 98.6 F 05/08/24 09:10 Pulse 98 05/08/24 09:10 Resp 14 05/08/24 09:10 BP 110/60 05/08/24 09:10 Pulse Ox 98 05/08/24 09:10 Oxygen Delivery Method Room Air 05/08/24 09:10 BMI result Body Mass Index 27.9 Tobacco/Smoking Status: Tobacco use Status Tobacco use date assessed 05/08/24 05/08/24 09:13 Patient Tobacco Use Status Never used Tobacco 05/08/24 09:13 e-Cigarette/Vaping Use Never Used 05/08/24 09:13 PHQ-9: PHQ-9 Score PHQ-9: Total score 0 05/08/24 09:22 Depression Screening Interpretation: Negative Thrive Assessment: Date of Thrive Assessment Date Thrive assessed 05/08/24 05/08/24 09:13 Currently or been in a relationship where the following occur: No concerns reported Const General: no acute distress, well developed, alert and awake Nutritional Appearance: well nourished Orientation/consciousness: patient oriented x3 HENMT Head: Yes normocephalic and Yes atraumatic Ears: hearing grossly normal bilaterally and TM's normal bilaterally General nose exam: Normal external nose present and Normal nares present Mouth: Normal oral and palatal mucosa present and moist mucous membranes Teeth and gingiva: dentition normal Throat: Yes posterior oropharynx normal Eyes General: appearance normal, both eyes and all related structures Pupils: Equal, round and reactive pupils present and Pupil accommodation reflex normal EOM: EOMs intact bilaterally Neck Neck: Yes normal visual inspection, Yes no lymphadenopathy and Yes trachea midline Thyroid: Thyroid normal Carotids: no bruits Lymphatic: no lymphadenopathy noted Chest Chest palpation & inspection: normal inspection of the chest Resp Effort & Inspection: normal respiratory effort Auscultation: clear to auscultation bilaterally Cardio Rate: regular rate Rhythm: regular rhythm Heart sounds: S1 normal heart sound present, S2 normal heart sound present, no gallops, no murmurs and no rubs Bruits: no abdominal aortic bruits and no carotid bruits GI Palpation (GI): No Abdominal aortic bruit present, Soft to palpation, nontender, No hepatosplenomegaly present and No Rebound tenderness present Auscultation: normal bowel sounds General: Yes no CVA tenderness Back/Spine/Pelvis Back: no CVA tenderness Cervical Spine: cervical ROM normal and No Cervical spine tenderness Thoracic/Lumbar Spine: thoraco-lumbar ROM normal, No pain with thoraco-lumbar ROM, No thoracic spinal tenderness and No lumbar spinal tenderness Skin Lesions: no lesions Rashes: no rashes Trauma: no lacerations or abrasions Wounds: no wounds Nails: normal Neuro General: patient oriented x3 Cranial nerves: Yes Equal, round and reactive pupils present Cognition (Neuro): normal cognition Gait exam (Neuro): Normal gait present Motor exam (neuro): 5/5 motor strength present throughout Sensory Exam: No Sensory deficit (Neuro) Deep tendon reflexes (DTR's): Right patellar reflex intensity grade: 2+ and Left patellar reflex intensity grade: 2+ Extrem General: Yes normal to inspection and No edema Psych Appearance: grossly normal Affect: normal affect Attitude: cooperative Thought process: Normal thought process present Coding Level of Care Code Est Pt Level 3 (60116) Est Pt Prev Care 40-64y(54634) Diagnoses Adult general medical exam Z00.00 Multiple sclerosis G35 Cerumen impaction H61.20 Screening for cervical cancer Z12.4 Subjective hearing change H91.90 Screening for colon cancer Z12.11 Breast cancer screening by mammogram Z12.31 Additional Codes DION-7 Assessment Billing - DION-7 Assessment Tool: DION-7 Assessment 33007 ([id number]) PHQ-9 - 91346 - PHQ-9 Billing: Yes ([id number]) Assessment & Plan Assessment & Plan (1) Adult general medical exam: Code(s): Z00.00 - Encounter for general adult medical examination without abnormal findings Category: Medical Plan: 48-year-old?female?presents For?complete?physical?exam Encouraged?healthy?diet?with?active?lifestyle?and?plenty?of?exercise (2) Multiple sclerosis: Comment: Managed by Neurology. Code(s): G35 - Multiple sclerosis Category: Medical Plan: History?of?MS?and?seizures Followed?by? Follow-up?with?Neurology?as?recommended Currently?stable (3) Cerumen impaction: Code(s): H61.20 - Impacted cerumen, unspecified ear Category: Medical Plan: Patient?gets?bilateral?cerumen?impactions.??She?is?using?Debrox?drops. Currently?has?cerumen?in?ear?canals?bilaterally?but?not?impacted?TMs. She?would?like?to?follow-up?with?ENT?as?she?notes?that?this?affects?her?hearing Renewed?referral?to?ENT (4) Screening for cervical cancer: Comment: Pap smear done 05/03/23.cervix tiny nulliparous postmenopausal slightly difficult to reach-05/03/2023 Pap is negative with negative HPV. Code(s): Z12.4 - Encounter for screening for malignant neoplasm of cervix Category: Medical Plan: Followed?by?Jannette?Campos Pap?smear?done?05/01/2023?and?up-to-date Follow-up?with?marketing sales supervisor?as?recommended (5) Subjective hearing change: Code(s): H91.90 - Unspecified hearing loss, unspecified ear Category: Medical Plan: Offer?referral?to?audiology?but?patient?would?like?to?see?ENT?1st As?above,?referred (6) Screening for colon cancer: Code(s): Z12.11 - Encounter for screening for malignant neoplasm of colon Category: Medical Plan: [place].??Recommended?follow- up?in?2027 (7) Breast cancer screening by mammogram: Code(s): Z12.31 - Encounter for screening mammogram for malignant neoplasm of breast Category: Medical Plan: Last?mammogram?and?ultrasounds?at?a?state These?were?within?normal?limits?and?recommended?annual?screening Will?continue?annual?screening?and?I?have?ordered?her?mammogram Orders: Orders Microalbumin, Random (w Creat) Today I10 - Essential (primary) hypertension, Z00.00 - Encounter for general adult medical examination without abnormal findings Lipid Panel Today Z00.00 - Encounter for general adult medical examination without abnormal findings TSH reflex Free T4 Today Z00.00 - Encounter for general adult medical examination without abnormal findings MM tomosynthesis screening BI Today Z12.31 - Encounter for screening mammogram for malignant neoplasm of breast Comprehensive [place]. Panel Fast Today Z00.00 - Encounter for general adult medical examination without abnormal findings Complete Blood Count Auto Diff Today Z00.00 - Encounter for general adult medical examination without abnormal findings Referrals Ear/Nose/Throat Referral H61.20 - Impacted cerumen, unspecified ear, H91.90 - Unspecified hearing loss, unspecified ear, J35.8 - Other chronic diseases of tonsils and adenoids
[2024-05-08 09:10] VITALS: BP 110/60; PULSE 98; RESP 14; TEMP 37; O2SAT 98; BMI 27.9
== END 2024-05-08 09:49 | disposition home or self-care (01) ==
PROVIDERS: PCP Family Medicine; Visit Provider Family Medicine
DX: Z00.00 Encounter for general adult medical examination without abnormal findings (principal); G35 Multiple sclerosis; H61.23 Impacted cerumen, bilateral; Z12.4 Encounter for screening for malignant neoplasm of cervix; Z12.11 Encounter for screening for malignant neoplasm of colon; Z12.31 Encounter for screening mammogram for malignant neoplasm of breast

== ENCOUNTER → 2024-05-08 09:01 | Outpatient (BNVA) | payer BC, SELFPAY | PROVIDERS: PCP Family Medicine; Visit Provider Family Medicine | DX: Z00.00 Encounter for general adult medical examination without abnormal findings (principal); G35 Multiple sclerosis; H91.90 Unspecified hearing loss, unspecified ear | CPT/HCPCS: 96127 ==

== ENCOUNTER 2024-09-15 13:09 | Outpatient (REF) | payer BC, SELFPAY ==
--- NOTE | ~2024-09-15 | XR_ITS ---
EXAMINATION: XR FOOT, RIGHT CLINICAL INFORMATION: M79.671 - Pain in right foot COMPARISON: None available. TECHNIQUE: AP, lateral, and oblique views of the right foot. FINDINGS: Joint spaces are preserved. There are no erosions. There is no joint diastases or malalignment. XR/XR foot RT min 3V IMPRESSION: Unremarkable right foot Electronically signed by: Andrés Stock MD 09/15/2024 03:20 PM EDT
== END 2024-09-15 13:10 | disposition home or self-care (01) ==
LOC: HO.HMGCX 13:09
PROVIDERS: PCP Family Medicine; Visit Provider Physician Assistant Medical
DX: S93.601A Unspecified sprain of right foot, initial encounter (principal); X58.XXXA Exposure to other specified factors, initial encounter; Y93.69 Activity, other involving other sports and athletics played as a team or group; Y92.9 Unspecified place or not applicable; Y99.9 Unspecified external cause status
CPT/HCPCS: 73630

== ENCOUNTER 2024-09-15 13:09 | Outpatient (AMB) | payer BC, SELFPAY ==
[2024-09-15 13:17] VITALS: PULSE 82; TEMP 36.8; O2SAT 96; BMI 29.0
--- NOTE | 2024-09-15 13:17 | MHC.OFFWIV ---
Intake Vital Signs 09/15/24 13:17 Height 5 ft 7 in Weight 185 lb BMI 29.0 Pulse 82 Pulse Source Pulse Oximeter Temp 98.3 F Temp Source Oral Pulse Oximetry (%) 96 Oxygen Delivery Method Room Air Intake Visit Reasons: EP pain & swollen RT foot Intake Note: Patient present with a swollen foot times 3 day. 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 - The injury occurred while playing [employer] in flip-flops, leading to a rolled foot. - Initially thought to have rolled the ankle, but pain localized to the right lateral foot. - Pain has increased since the incident, with tenderness noted at the site. - She has pain when she puts on her shoe. - She has pain with bearing weight. - Pain has gotten worse and her right foot is swollen. - She denies ankle pain, calf pain, knee pain, numbness or tingling. Physical Exam General: Cooperative, healthy appearing, comfortable, no acute distress and well developed Respiratory: Normal respiratory effort and able to speak in complete sentences. Clear to auscultation bilaterally Cardiovascular: Regular rate and rhythm. Normal S1 and S2 Skin: No rashes or lesions noted Neuro: Sensation is intact. Extremities:FROM of the right knee and ankle. Tenderness noted on the fifth metatarsal of the right foot, no significant bruising, able to flex foot down with some discomfort. Normal to inspection otherwise. Strength is 5/5, unable to bear weight on the right foot. Ambulates with a hop. Patient was informed and verbally consented to the use of an ambient scribe for clinic note documentation during this visit. [facility] Medical History Menopause Migraine Cervical disc disorder Anxiety Multiple sclerosis Seizures Surgical History [place] teeth removed H/O colonoscopy Social History Household Members: Spouse and Children Household Members Other:: 2 daughters Housing: House 75 years or older and lives alone: No Alcohol intake: never Patient Tobacco Use Status: Never used Tobacco e-Cigarette/Vaping Use: Never Used Second Hand Smoke Exposure: No Patient : No service: No Current occupational status: employed Current occupational exposures/hazards: No Cognitive needs: No Hearing needs: Yes (impacted ears ) Vision needs: No Female Reproductive History Menstrual Age of Menarche: 11 Review of Systems Const All systems reviewed & are unremarkable except as noted in HPI and below Physical Exam Vital Signs: Last Vital Signs Temp 98.3 F 09/15/24 13:17 Pulse 82 09/15/24 13:17 Pulse Ox 96 09/15/24 13:17 Oxygen Delivery Method Room Air 09/15/24 13:17 BMI result Body Mass Index 29.0 Results Reviewed Results Reviewed: Reviewed the foot x-ray in the office today Assessment & Plan Assessment & Plan (1) Right foot sprain: Code(s): S93.601A - Unspecified sprain of right foot, initial encounter Qualifiers: Encounter type: initial encounter Qualified Code(s): S93.601A - Unspecified sprain of right foot, initial encounter Plan Most likely sprain vs fracture Plan - Obtain an X-ray to assess for potential fracture - Rest, ice, and elevation - tylenol or motrin as needed - wear support boot - can refer her to ortho if no better - follow up with PCP Orders: Orders XR foot RT min 3V Today M79.671 - Pain in right foot Coding Level of Care Code Est Pt Level 4 (66457) Diagnoses Sprain of right foot, initial encounter S93.601A Encounter type: initial encounter
== END 2024-09-15 15:48 | disposition home or self-care (01) ==
PROVIDERS: PCP Family Medicine; Visit Provider Physician Assistant Medical
DX: S93.601A Unspecified sprain of right foot, initial encounter (principal)

== ENCOUNTER → 2024-09-15 14:35 | Outpatient (BNV) | payer BC, SELFPAY | PROVIDERS: PCP Family Medicine; Visit Provider Radiology Diagnostic Radiology | DX: M79.671 Pain in right foot (principal) | CPT/HCPCS: 73630 ==

== ENCOUNTER 2024-11-05 09:03 | Outpatient (AMB) | payer BC, SELFPAY ==
--- NOTE | 2024-11-05 09:26 | MHC.OFFVIS ---
Intake Visit Reasons: 6M MS Allergies No Known Allergies Allergy (Verified 09/15/24 13:23) Medication List - Last Reconciled 11/05/24 by Aldo Ambrocio MD dimethyl fumarate 240 mg PO BID 90 days levetiracetam 250 mg PO BID lorazepam 0.5 mg PO DAILY PRN triamcinolone acetonide 0.5% 1 appl topical BID PRN 30 days HPI Comments Details: 49 y/o woman with Remitting Relapsing Multiple Sclerosis. Her initial presentation in 2005 was problem with hand writing, imbalance, and difficulty writing correct words. Her brain MRI done in 2004 and 2005 revealed a few small lesions, one in right cerebellar peduncle, and progression during this time. CSF analysis was ok. She took Betaseron for number of years that was changed to Tecfidera in 2017: She also developed complex partial seizure disorder likely from MS. She is presenting with Multiple Sclerosis (MS). Her MS condition has been stable for several years, and this was reaffirmed by a recent MRI. The patient is maintaining a stable medication regimen, including Tecfidera for MS treatment, taken regularly, and lorazepam, which is used occasionally. Levetiracetam is also part of her ongoing medication for seizure control associated with MS. The patient reports experiencing tachycardia as part of her medical history, which is also being managed with her current medications. There have been no major exacerbations or new symptoms, indicating a stable disease course. Additionally, the patient admits to a lack of adherence to routine laboratory tests, which are necessary to monitor her condition and ensure the safe use of her medications. [facility] Medical History Menopause Migraine Cervical disc disorder Anxiety Multiple sclerosis Seizures Surgical History [place] teeth removed H/O colonoscopy Social History Household Members: Spouse and Children Household Members Other:: 2 daughters Housing: House 75 years or older and lives alone: No Alcohol intake: never Patient Tobacco Use Status: Never used Tobacco e-Cigarette/Vaping Use: Never Used Second Hand Smoke Exposure: No service: No Current occupational status: employed Current occupational exposures/hazards: No Cognitive needs: No Hearing needs: Yes (impacted ears ) Vision needs: No Female Reproductive History Menstrual Age of Menarche: 11 Review of Systems Const Details: - Neurological: Reports stability with MS symptoms. - Cardiovascular: Reports tachycardia. - Psychiatric: Reports occasional use of lorazepam. Physical Exam Neuro Other: Mental Status: Alert and oriented to person, place, and time. Normal attention. Normal spontaneous speech, fluency, and comprehension. No obvious issues with mood and memory. Affect is appropriate. Cranial Nerves: CN II: Visual muniz full to confrontation, visual acuity intact. CN III, IV, : Pupils equal, round, reactive to light and accommodation. Extraocular movements are normal. CN V: Facial sensation is normal. CN VII: Facial movements symmetrical. CN VIII: Hearing intact to bedside conversation is normal. CN IX, X: Palate elevates symmetrically. CN XI: Shoulder shrug and head turn symmetrical. CN XII: Tongue midline without atrophy or fasciculations. Motor: Bulk and tone normal in all extremities. No significant muscle weakness in arms and legs. No drift. Reflexes: Deep tendon reflexes 2+ and symmetric. Plantar response down-going bilaterally. Coordination: [id number] and [id number] testing normal. No dysmetria. Gait and Station: No obvious gait abnormality. No ataxia or instability. Extrapyramidal: Full facial expressions and blinking. No rigidity. Movements are appropriate with no tremor or abnormality. Speech: Normal; no dysarthria or tremor. Assessment & Plan Assessment & Plan (1) Multiple sclerosis: Comment: JCV titre at [facility]: 2015: neg. MRI brain WO at [facility] in Feb 2024: Stable MRI brain WO at [facility] in 2022: a few b/l WM small lesions, some more prominant than last time MRI brain WO at [facility] in 2020: a few small b/l WM lesions MRI brain WO at [facility] in Jun 2015: stable WM lesions MRI brain WO at [facility] in 2013: at least 4 lesions, no new lesion MRI brain w/o cont at [facility] in 2007: at least 6 WM lesions, supra and infratentorial, infra is right cerebellar peduncular CSF analysis at [facility] in 2005: glu 87, pro 24, WBC 1, IgG ind WNL, OCBs Neg. MRI brain WWO at [facility] in 2009: about 6 WM lesion, slightly more prominant than 2008 MRI brain at [facility] in 2005: R cerebellar ped lesion MRA brain at [facility] in 2005: [facility] screen at office in 2006: WNL. Code(s): G35 - Multiple sclerosis Category: Medical Plan: During our discussion, we reviewed the patient's stable condition of Multiple Sclerosis, as confirmed by recent MRI findings. I emphasized the importance of continuing her current medication regimen, including Tecfidera and other medications, as well as adherence to regular laboratory tests to monitor for any adverse effects. We also discussed the management of her tachycardia with ongoing medications. I reassured the patient that regular follow-ups would assist in monitoring her condition and that any significant changes should be reported promptly. We did not plan any changes to her current management strategy as her condition remains stable. (2) Anxiety: Code(s): F41.9 - Anxiety disorder, unspecified Category: Medical (3) Seizure disorder: Code(s): G40.909 - Epilepsy, unspecified, not intractable, without status epilepticus Category: Medical Plan Impression and recommendations a: Multiple sclerosis, stable for many years, presently taking Tecfidera b: Seizure disorder, stable with Levetiracetam c: Anxiety, managed with PRN lorazepam Orders: Orders Complete Blood Count Auto Diff Today G35 - Multiple sclerosis Liver Panel Today G35 - Multiple sclerosis Coding Level of Care Code Est Pt Level 5 (59496) Diagnoses Multiple sclerosis G35 Anxiety F41.9 Seizure disorder G40.909
--- OUTSIDE RECORDS SUMMARY | 2024-11-05 09:29 | XMS_ITS ---
Author Name [facility] Organization Unknown Care Team Organization Name Specialty Phone Email Start Date End Da te [facility] Termed, PROVIDER Primary Care 01/17/202210/10
== END 2024-11-05 09:49 | disposition home or self-care (01) ==
LOC: HO.HSM 09:04
PROVIDERS: PCP Family Medicine; Visit Provider Psychiatry & Neurology Neurology
DX: G35 Multiple sclerosis (principal); F41.9 Anxiety disorder, unspecified; G40.909 Epilepsy, unspecified, not intractable, without status epilepticus
CPT/HCPCS: 99215

== ENCOUNTER 2024-12-22 13:25 | Outpatient (AMB) | payer BC, SELFPAY ==
[2024-12-22 13:40] VITALS: BP 110/62; PULSE 72; O2SAT 96; BMI 29.5
--- NOTE | 2024-12-22 13:40 | A.OFFPC_ITS ---
Vital Signs 12/22/24 13:40 Height 5 ft 7 in Weight 188 lb 2 oz BMI 29.5 BP 110/62 Blood Pressure Location Lt brachial Position Sitting Pulse 72 Pulse Source Pulse Oximeter Pulse Oximetry (%) 96 Oxygen Delivery Method Room Air Intake Visit Reasons: CAROLYN DR Varela Live In Caregiver Required: No Accompanied by: Self / Same As Patient Allergies No Known Allergies Allergy (Verified 12/22/24 14:13) Medication List - Last Reconciled 12/22/24 by Ronal Keen MD dimethyl fumarate (Tecfidera) 240 mg PO BID levetiracetam 250 mg PO BID lorazepam 0.5 mg PO DAILY PRN triamcinolone acetonide 0.5% 1 appl topical BID PRN 30 days Tobacco use date assessed: 12/22/24 Dental Screening Dental Screen Date: 12/22/24 Did you have a dental visit in the last 12 months?: Yes Did you have a dental problem in the last 6 months where you did not have access to dental care?: No Was dental information given to patient?: Patient has dentist HPI CAROLYN DR Varela HPI Details Patient comes in today for her follow-up visit - is transferring over from Dr. Varela States that she currently feels okay She denies any headaches or dizziness Denies any chest pains, no shortness of breath No nausea/vomiting, no abdominal pain No change in bowel habits noted She continue to follow-up with Dr. Ambrocio for her remitting relapsing multiple sclerosis and is currently on maintenance treatment with Tecfidera PFSH Medical History (Updated 12/29/24 @ 04:13 by Ronal Keen MD) Overweight (BMI 25.0-29.9) Epilepsy Menopause Migraine Cervical disc disorder Anxiety Multiple sclerosis Seizures Surgical History [place] teeth removed H/O colonoscopy Social History Household Members: Spouse and Children Household Members Other:: 2 daughters Housing: House 75 years or older and lives alone: No Alcohol intake: never Patient Tobacco Use Status: Never used Tobacco e-Cigarette/Vaping Use: Never Used Second Hand Smoke Exposure: No service: No Current occupational status: employed Current occupational exposures/hazards: No Cognitive needs: No Hearing needs: Yes (impacted ears ) Vision needs: No Female Reproductive History Menstrual Age of Menarche: 11 Questionnaire Thrive Questionnaire Date Thrive assessed: 05/08/24 I am a: Patient What is your living situation today?: I have a steady place to live Within the past 12 months, did the food you bought not last and you didn't have the money to get more?: Never true Within the past 12 months, did you worry whether your food would run out before you got money to buy more?: Never true Do you have trouble paying for medicines?: No Do you have trouble getting transportation to medical appointments?: No Do you have trouble paying your heating and electricity bill?: No Do you have trouble taking care of your child, family member or friend?: No Do you have trouble with day-to-day activities such as bathing, preparing meals, shopping, managing finances, etc.?: No Are you currently unemployed and looking for a job?: No Are you interested in more education?: No Please select the resources that you would like help with: None Currently or been in a relationship where the following occur: No concerns reported THRIVE Score: 0 AUDIT C Alcohol Use Questionnaire (AUDIT-C) 1. How often do you have a drink containing alcohol?: Never 3. How often do you have six or more drinks on one occasion?: Never Total Score: 0 Score Reviewed/Action Taken: Yes DION-7 AMB Questionnaire DION-7 Date DION - 7 assessed: 05/08/24 Source: Developed by Drs. Filemon Robertson, Ashley Flores, Umair Palomo and colleagues, with an educational alberto from [employer]. Review of Systems Const Denies chills, Denies fatigue, Denies fever(s) and Denies headache(s) ENT Denies dysphagia, Denies dizziness, Denies otalgia, Denies headache(s), Denies neck pain, Denies odynophagia and Denies sore throat Card Denies chest pain, Denies palpitations and Denies dyspnea Resp Denies chest congestion, Denies cough and Denies dyspnea GI Denies abdominal pain, Denies constipation, Denies dysphagia, Denies heartburn, Denies diarrhea, Denies nausea, Denies odynophagia and Denies vomiting Denies difficulty voiding, Denies nocturia and Denies dysuria Musc Denies back pain and Denies neck pain Skin/Breast Denies rash Neuro Denies dizziness, Denies headache(s) and Denies convulsions Psych Reports anxiety (on and off) Endo Denies fatigue and Denies palpitations Physical exam (Primary Care) Vital Signs: Last Vital Signs Pulse 72 12/22/24 13:40 BP 110/62 12/22/24 13:40 Pulse Ox 96 12/22/24 13:40 Oxygen Delivery Method Room Air 12/22/24 13:40 BMI result Body Mass Index 29.5 Tobacco/Smoking Status: Tobacco use Status Tobacco use date assessed 12/22/24 12/22/24 13:45 Patient Tobacco Use Status Never used Tobacco 12/22/24 13:45 e-Cigarette/Vaping Use Never Used 12/22/24 13:45 Thrive Assessment: Date of Thrive Assessment Date Thrive assessed 05/08/24 12/22/24 13:45 Currently or been in a relationship where the following occur: No concerns reported Const General: no acute distress and alert HENMT Ears: TM's normal bilaterally and EAC's normal Throat: Yes posterior oropharynx normal and Yes tonsils normal (no TP congestion) Neck Neck: Yes supple and No lymphadenopathy Thyroid: Thyroid normal Resp Auscultation: clear to auscultation bilaterally, no rales and no wheezes Cardio Rate: regular rate Rhythm: regular rhythm Heart sounds: no murmurs GI Palpation (GI): Soft to palpation and nontender Auscultation: normal bowel sounds General: Yes no CVA tenderness Back/Spine/Pelvis Back: no CVA tenderness Thoracic/Lumbar Spine: No lumbar spinal tenderness Skin Rashes: no rashes Extrem General: Yes no clubbing, cyanosis or edema Coding Level of Care Code Est Pt Level 4 (56390) Diagnoses Multiple sclerosis G35 Partial symptomatic epilepsy with complex partial seizures, not intractable, without status epilepticus G40.209 Epilepsy type: partial symptomatic Intractability: not intractable Status epilepticus: without status epilepticus Partial seizure type: with complex partial seizures Eczema, unspecified type L30.9 Eczema type: unspecified Anxiety F41.9 Overweight (BMI 25.0-29.9) E66.3 Assessment & Plan Assessment & Plan (1) Multiple sclerosis: Comment: JCV titre at [facility]: 2015: neg. MRI brain WO at [facility] in Feb 2024: Stable MRI brain WO at [facility] in 2022: a few b/l WM small lesions, some more prominant than last time MRI brain WO at [facility] in 2020: a few small b/l WM lesions MRI brain WO at [facility] in Jun 2015: stable WM lesions MRI brain WO at [facility] in 2013: at least 4 lesions, no new lesion MRI brain w/o cont at [facility] in 2007: at least 6 WM lesions, supra and infratentorial, infra is right cerebellar peduncular CSF analysis at [facility] in 2005: glu 87, pro 24, WBC 1, IgG ind WNL, OCBs Neg. MRI brain WWO at [facility] in 2009: about 6 WM lesion, slightly more prominant than 2007 MRI brain at in 2004: R cerebellar ped lesion MRA brain at in 2004: OKEPs screen at office in 2005: WNL. Code(s): G35 - Multiple sclerosis Category: Medical Plan: (+) relapsing remitting multiple sclerosis - initial presentation was gait imbalance and difficulty writing correct words that first manifested in 2005 She also later developed complex partial seizure disorder that was likely related to her MS She was on Betaseron for years this was later changed to Tecfidera in 2016 and she currently remains on Tecfidera at 240 mg BID Follow up with neurology as scheduled (2) Epilepsy: Code(s): G40.909 - Epilepsy, unspecified, not intractable, without status epilepticus Category: Medical Qualifiers: Epilepsy type: partial symptomatic Intractability: not intractable Status epilepticus: without status epilepticus Partial seizure type: with complex partial seizures Qualified Code(s): G40.209 - Localization-related (focal) (partial) symptomatic epilepsy and epileptic syndromes with complex partial seizures, not intractable, without status epilepticus Plan: Patient developed complex partial seizures years ago (2008), likely related to her MS She has not had any seizures for about 6 months now Continue Levetiracetam 250 mg BID Follow up with neurology as scheduled (3) Eczema: Code(s): L30.9 - Dermatitis, unspecified Category: Medical Qualifiers: Eczema type: unspecified Qualified Code(s): L30.9 - Dermatitis, unspecified Plan: Continue Triamcinolone acetonide 0.5% BID PRN (4) Anxiety: Code(s): F41.9 - Anxiety disorder, unspecified Category: Medical Plan: Continue Lorazepam 0.5 mg QD PRN (5) Overweight (BMI 25.0-29.9): Code(s): E66.3 - Overweight Category: Medical Plan: Reinforced diet/exercise as tolerated/lose weight Plan As patient has not had any labs done in a while, will have her get some follow up labs done KAYODE To return in May 2025 for her annual physical examination Orders: Orders Comprehensive [place]. Panel Fast 12/22/24 E78.00 - Pure hypercholesterolemia, unspecified Lipid Panel 12/22/24 E78.00 - Pure hypercholesterolemia, unspecified TSH reflex Free T4 12/22/24 E78.00 - Pure hypercholesterolemia, unspecified Vitamin B12 and Folate 12/22/24 E53.8 - Deficiency of other specified B group vitamins Complete Blood Count Auto Diff 12/22/24 D64.9 - Anemia, unspecified UA CC w/rflx Micro + Cult 12/22/24 R30.0 - Dysuria Vitamin D 25-OH Total 12/22/24 E55.9 - Vitamin D deficiency, unspecified
== END 2024-12-22 14:41 | disposition home or self-care (01) ==
LOC: HO.HMCH 13:26
PROVIDERS: PCP Internal Medicine; Visit Provider Internal Medicine
DX: G35.D Multiple sclerosis, unspecified (principal); G40.209 Localization-related (focal) (partial) symptomatic epilepsy and epileptic syndromes with complex partial seizures, not intractable, without status epilepticus; L30.9 Dermatitis, unspecified; F41.9 Anxiety disorder, unspecified; E66.3 Overweight